=== PATIENT | male | born 1980 | race Caucasian/White ===

== ENCOUNTER → 2017-06-06 | Outpatient (CLI) | payer OTHER, SELFPAY | LOC: M OUTALCOH 11:32 | PROVIDERS: ATTEND Psychiatry & Neurology Psychiatry | DX: Z13.9 Encounter for screening, unspecified (principal); F10.20 Alcohol dependence, uncomplicated ==

== ENCOUNTER 2017-06-30 15:58 | Outpatient (RCR) | payer SELFPAY | END 2017-07-03 | LOC: M OUTALCOH 15:58 | DX: F10.20 Alcohol dependence, uncomplicated (principal); F17.200 Nicotine dependence, unspecified, uncomplicated ==

== ENCOUNTER 2018-07-25 15:50 | Emergency (ER) | payer OTHER, SELFPAY ==
[~2018-07-25] VITALS: Ht 170.2 cm; Wt 72.7 kg
[2018-07-25 16:01] VITALS: BP 117/70
== END 2018-07-25 18:12 | disposition home or self-care (01) ==
LOC: EDBD 15:50 → M ED 15:50
DX: S61.412A Laceration without foreign body of left hand, initial encounter (principal); W26.0XXA Contact with knife, initial encounter; Y92.098 Other place in other non-institutional residence as the place of occurrence of the external cause; F17.210 Nicotine dependence, cigarettes, uncomplicated; Z88.8 Allergy status to other drugs, medicaments and biological substances

== ENCOUNTER → 2018-10-18 | Outpatient (REF) | payer OTHER ==
[2018-10-18 14:13] LABS: BASO # 0.1 10^3/uL (0.0-0.2); BASO % 1.1 % (0.0-1.0); EOS # 0.2 10^3/uL (0.0-0.50); EOS % 2.2 % (0.0-3.0); HEMATOCRIT 51.2 % (42.0-52.0); HEMOGLOBIN 17.3 g/dl (13.5-17.5); LYMPH # 2.1 10^3/uL (1.5-4.5); LYMPH % 23.9 % (24.0-44.0); MEAN CORPUSCULAR HEMOGLOBIN 30.9 pg (27.0-33.0); MEAN CORPUSCULAR HGB CONC 33.8 g/dl (32.0-36.5); MEAN CORPUSCULAR VOLUME 91.6 fl (80.0-96.0); MONO % 10.7 % (0.0-5.0); NEUTROPHILS # 5.5 10^3/uL (1.8-7.7); PLATELET COUNT, AUTOMATED 353 10^3/uL (150-450); RED BLOOD COUNT 5.59 10^6/uL (4.30-6.10)
[2018-10-18 14:47] LABS: HEMOGLOBIN A1c 5.2 %
== END ==
LOC: M SFHCSACK 09:14
PROVIDERS: ATTEND Physician Assistant
DX: Z13.220 Encounter for screening for lipoid disorders (principal); Z13.29 Encounter for screening for other suspected endocrine disorder; M25.50 Pain in unspecified joint; Z83.3 Family history of diabetes mellitus; Z13.21 Encounter for screening for nutritional disorder

== ENCOUNTER → 2018-11-22 | Outpatient (REF) ==
--- NOTE | 2018-11-22 15:12 | REP ---
PARTIAL LUMBAR SPINE: HISTORY: Degenerative disc disease. There is no acute fracture or subluxation. The L3-4 and L4-5 intervertebral discs are decreased in height consistent with disc degeneration. An osteophyte is present on L4. IMPRESSION: Degenerative change, as described above. Electronically Signed by Jorden Hernández MD 11/22/2018 03:32 P
--- NOTE | 2018-11-22 18:42 | REP ---
LEFT SHOULDER, THREE VIEWS: HISTORY: Degenerative joint disease. There is no acute fracture or dislocation. The joint spaces are normal in appearance. IMPRESSION: There is no acute fracture or dislocation. Electronically Signed by Jorden Hernández MD 11/23/2018 08:28 A
== END ==
LOC: M SMT 13:55
PROVIDERS: ATTEND Internal Medicine
DX: M25.78 Osteophyte, vertebrae (principal); M51.36 Other intervertebral disc degeneration, lumbar region

== ENCOUNTER → 2018-11-28 | Outpatient (CLI) | payer OTHER | LOC: M OUTALCOH 08:39 | PROVIDERS: ATTEND Psychiatry & Neurology Psychiatry | DX: Z03.89 Encounter for observation for other suspected diseases and conditions ruled out (principal) ==

== ENCOUNTER 2018-12-29 15:28 | Outpatient (RCR) | payer OTHER | END 2018-12-31 | LOC: M OUTALCOH 15:28 | PROVIDERS: ATTEND Psychiatry & Neurology Psychiatry | DX: Z03.89 Encounter for observation for other suspected diseases and conditions ruled out (principal); F17.200 Nicotine dependence, unspecified, uncomplicated ==

== ENCOUNTER 2019-01-25 10:00 | Outpatient (RCR) | payer OTHER | END 2019-01-31 | LOC: M OUTALCOH 10:00 | PROVIDERS: ATTEND Psychiatry & Neurology Psychiatry | DX: F10.10 Alcohol abuse, uncomplicated (principal); F17.200 Nicotine dependence, unspecified, uncomplicated ==

== ENCOUNTER 2019-03-01 10:00 | Outpatient (RCR) | payer OTHER | END 2019-03-03 | LOC: M OUTALCOH 10:00 | PROVIDERS: ATTEND Psychiatry & Neurology Psychiatry | DX: F10.10 Alcohol abuse, uncomplicated (principal); F17.200 Nicotine dependence, unspecified, uncomplicated ==

== ENCOUNTER 2019-03-28 12:00 | Outpatient (RCR) | payer OTHER | END 2019-04-02 | LOC: M OUTALCOH 12:00 | PROVIDERS: ATTEND Psychiatry & Neurology Psychiatry | DX: F10.10 Alcohol abuse, uncomplicated (principal); F17.200 Nicotine dependence, unspecified, uncomplicated ==

== ENCOUNTER 2019-04-30 13:00 | Outpatient (RCR) | payer OTHER | END 2019-05-03 | LOC: M OUTALCOH 13:00 | PROVIDERS: ATTEND Psychiatry & Neurology Psychiatry | DX: F10.10 Alcohol abuse, uncomplicated (principal); F17.200 Nicotine dependence, unspecified, uncomplicated ==

== ENCOUNTER 2019-05-30 14:00 | Outpatient (RCR) | payer OTHER | END 2019-06-02 | LOC: M OUTALCOH 14:00 | PROVIDERS: ATTEND Psychiatry & Neurology Psychiatry | DX: F10.10 Alcohol abuse, uncomplicated (principal); F17.200 Nicotine dependence, unspecified, uncomplicated ==

== ENCOUNTER → 2019-06-20 | Outpatient (REF) | payer OTHER ==
[2019-06-20 15:59] LABS: CHLAMYDIA DNA AMPLIFICATION NEGATIVE (NEGATIVE); GC DNA AMPLIFICATION NEGATIVE (NEGATIVE)
== END ==
LOC: M SFHCSACK 11:53
PROVIDERS: ATTEND Physician Assistant
DX: R30.0 Dysuria (principal)

== ENCOUNTER → 2019-07-03 | Outpatient (REF) | payer OTHER ==
[2019-07-03 16:57] LABS: APPEARANCE, URINE CLEAR (CLEAR); BACTERIA, URINE AUTO NEGATIVE (NEGATIVE); BILIRUBIN, URINE AUTO NEGATIVE (NEGATIVE); BLOOD, URINE BLOOD 1+ (NEGATIVE); COLOR, URINE YELLOW (YELLOW); GLUCOSE, URINE (UA) AUTO NEGATIVE (NEGATIVE); KETONE, URINE AUTO NEGATIVE (NEGATIVE); LEUKOCYTE ESTERASE, URINE AUTO NEGATIVE (NEGATIVE); MUCUS, URINE SMALL (NEGATIVE); NITRITE, URINE AUTO NEGATIVE (NEGATIVE); PROTEIN, URINE AUTO NEGATIVE (NEGATIVE); RBC, URINE AUTO 1 /HPF (0-3); SPECIFIC GRAVITY URINE AUTO 1.008 (1.002-1.035); SQUAMOUS EPITHELIAL CELL UR AU 0 /HPF (0-6); UROBILINOGEN, URINE AUTO 0.2 mg/dL (0.0-2.0); WBC, URINE AUTO 2 /HPF (0-3)
== END ==
LOC: M SMT 15:33
PROVIDERS: ATTEND Nurse Practitioner Women's Health
DX: R30.0 Dysuria (principal)

== ENCOUNTER → 2019-07-03 | Outpatient (RCR) | payer OTHER | LOC: M OUTALCOH 06-07 10:27 | PROVIDERS: ATTEND Psychiatry & Neurology Psychiatry | DX: F10.10 Alcohol abuse, uncomplicated (principal); F17.200 Nicotine dependence, unspecified, uncomplicated ==

== ENCOUNTER → 2019-07-19 | Outpatient (CLI) | payer OTHER | LOC: M PLALAB 11:40 | PROVIDERS: ATTEND Psychiatry & Neurology Addiction Medicine | DX: F10.10 Alcohol abuse, uncomplicated (principal) ==

== ENCOUNTER 2019-08-01 15:00 | Outpatient (RCR) | payer OTHER | END 2019-08-03 | LOC: M OUTALCOH 15:00 | PROVIDERS: ATTEND Psychiatry & Neurology Addiction Medicine | DX: F10.10 Alcohol abuse, uncomplicated (principal); F17.200 Nicotine dependence, unspecified, uncomplicated ==

== ENCOUNTER → 2019-08-29 | Outpatient (CLI) | payer OTHER | LOC: M PLALAB 15:38 | PROVIDERS: ATTEND Psychiatry & Neurology Addiction Medicine | DX: Z79.899 Other long term (current) drug therapy (principal) ==

== ENCOUNTER 2019-08-31 08:00 | Outpatient (RCR) | payer OTHER | END 2019-09-01 | LOC: M OUTALCOH 08:00 | PROVIDERS: ATTEND Psychiatry & Neurology Addiction Medicine | DX: F10.10 Alcohol abuse, uncomplicated (principal); F17.200 Nicotine dependence, unspecified, uncomplicated ==

== ENCOUNTER 2019-09-28 09:07 | Outpatient (RCR) | payer OTHER | END 2019-10-02 | LOC: M OUTALCOH 09:07 | PROVIDERS: ATTEND Psychiatry & Neurology Addiction Medicine | DX: F10.10 Alcohol abuse, uncomplicated (principal); F17.200 Nicotine dependence, unspecified, uncomplicated ==

== ENCOUNTER → 2020-03-11 | Outpatient (CLI) | payer OTHER | LOC: M OUTALCOH 13:28 | PROVIDERS: ATTEND Psychiatry & Neurology Addiction Medicine | DX: Z03.89 Encounter for observation for other suspected diseases and conditions ruled out (principal) ==

== ENCOUNTER → 2020-04-02 | Outpatient (RCR) | payer OTHER | LOC: M OUTALCOH 03-18 08:55 | PROVIDERS: ATTEND Psychiatry & Neurology Addiction Medicine | DX: F10.10 Alcohol abuse, uncomplicated (principal); F17.200 Nicotine dependence, unspecified, uncomplicated ==

== ENCOUNTER 2020-04-30 13:35 | Outpatient (RCR) | payer OTHER | END 2020-05-03 | LOC: M OUTALCOH 13:35 | PROVIDERS: ATTEND Psychiatry & Neurology Addiction Medicine | DX: F10.10 Alcohol abuse, uncomplicated (principal); F17.200 Nicotine dependence, unspecified, uncomplicated ==

== ENCOUNTER → 2020-06-02 | Outpatient (RCR) | payer OTHER | LOC: M OUTALCOH 05-07 13:48 | PROVIDERS: ATTEND Psychiatry & Neurology Addiction Medicine | DX: F10.20 Alcohol dependence, uncomplicated (principal); F17.200 Nicotine dependence, unspecified, uncomplicated ==

== ENCOUNTER 2020-07-01 16:00 | Outpatient (RCR) | payer OTHER | END 2020-07-03 | LOC: M OUTALCOH 16:00 | PROVIDERS: ATTEND Psychiatry & Neurology Addiction Medicine | DX: F10.20 Alcohol dependence, uncomplicated (principal); F17.200 Nicotine dependence, unspecified, uncomplicated ==

== ENCOUNTER → 2020-07-11 | Outpatient (CLI) | payer OTHER | LOC: M LABSMTC 11:56 | PROVIDERS: ATTEND Family Medicine | DX: Z20.822 Contact with and (suspected) exposure to COVID-19 (principal) ==

== ENCOUNTER 2025-02-15 23:10 | Emergency (ER) | payer OTHER, SELFPAY ==
[~2025-02-15] VITALS: Ht 172.7 cm; Wt 68.0 kg
[2025-02-15 23:59] LABS: PLATELET COUNT, AUTOMATED 368 10^3/uL (150-450)
[2025-02-16 00:17] LABS: AMPHETAMINES LEVEL URINE NEGATIVE (NEGATIVE); BARBITURATES URINE NEGATIVE (NEGATIVE); BENZODIAZEPINES URINE NEGATIVE (NEGATIVE); COCAINE METABOLITE URINE NEGATIVE (NEGATIVE); METHADONE URINE NEGATIVE (NEGATIVE); OPIATES URINE NEGATIVE (NEGATIVE); PHENCYCLIDINE URINE NEGATIVE (NEGATIVE)
[2025-02-16 00:20] LABS: ALT/SGPT 31 U/L (7.0-40); AST/SGOT 47 U/L (<34); CALCIUM LEVEL 9.3 MG/DL (8.5-10.1); CARBON DIOXIDE LEVEL 25 MMOL/L (20-31); CHLORIDE LEVEL 109 MMOL/L (98-107); CREATININE FOR GFR 0.75 MG/DL (0.70-1.30); GLOMERULAR FILTRATION RATE > 90.0 (>60); POTASSIUM SERUM 5.2 MMOL/L (3.5-5.1); SALICYLATE LEVEL < 3.0 MG/DL (<30); SODIUM LEVEL 146 MMOL/L (136-145)
[2025-02-16 00:30] LABS: CANNABINOIDS URINE POSITIVE (NEGATIVE)
[2025-02-16 01:11] LABS: ETHYL ALCOHOL (ETHANOL) 0.390 % (0.000-0.010)
[2025-02-16] MEDS: THIAMINE 100 MG TAB PO SCH (09:32)
[2025-02-16] MEDS: MULTIVITAMINS/MINERALS THERAP 1 TAB PO SCH (09:33)
[2025-02-16] MEDS: FOLIC ACID 1 MG TAB PO SCH (09:33)
[2025-02-16] MEDS ORDERED: HOME MED LIST COMPLETE! XX SCH (09:55)
[2025-02-16 12:59] VITALS: BP 138/78; TEMP 96.5; O2SAT 99
== END 2025-02-16 13:27 | disposition home or self-care (01) ==
LOC: M ED 23:10
DX: F10.120 Alcohol abuse with intoxication, uncomplicated (principal); F12.10 Cannabis abuse, uncomplicated; F32.A Depression, unspecified; F17.210 Nicotine dependence, cigarettes, uncomplicated; F19.10 Other psychoactive substance abuse, uncomplicated; Z88.6 Allergy status to analgesic agent

== ENCOUNTER 2025-03-07 00:30 | Emergency (ER) | payer MEDICAID, OTHER, SELFPAY ==
[2025-03-07 01:12] LABS: PLATELET COUNT, AUTOMATED 452 10^3/uL (150-450)
[2025-03-07 01:38] LABS: AMPHETAMINES LEVEL URINE NEGATIVE (NEGATIVE); BARBITURATES URINE NEGATIVE (NEGATIVE); BENZODIAZEPINES URINE NEGATIVE (NEGATIVE); COCAINE METABOLITE URINE NEGATIVE (NEGATIVE); METHADONE URINE NEGATIVE (NEGATIVE)
[2025-03-07 01:39] LABS: CANNABINOIDS URINE NEGATIVE (NEGATIVE); OPIATES URINE NEGATIVE (NEGATIVE); PHENCYCLIDINE URINE NEGATIVE (NEGATIVE)
[2025-03-07 01:48] LABS: ALT/SGPT 25 U/L (7.0-40); AST/SGOT 37 U/L (<34); CALCIUM LEVEL 10.0 MG/DL (8.5-10.1); CARBON DIOXIDE LEVEL 29 MMOL/L (20-31); CHLORIDE LEVEL 106 MMOL/L (98-107); CREATININE FOR GFR 0.64 MG/DL (0.70-1.30); GLOMERULAR FILTRATION RATE > 90.0 (>60); POTASSIUM SERUM 4.9 MMOL/L (3.5-5.1); SALICYLATE LEVEL < 3.0 MG/DL (<30); SODIUM LEVEL 146 MMOL/L (136-145)
[2025-03-07 03:05] LABS: ETHYL ALCOHOL (ETHANOL) 0.343 % (0.000-0.010)
[2025-03-07] MEDS ORDERED: THIAMINE 100 MG TAB PO SCH (06:00)
[2025-03-07] MEDS ORDERED: HOME MED LIST COMPLETE! XX SCH (08:05)
[2025-03-07] MEDS: FOLIC ACID 1 MG TAB PO SCH (09:40)
[2025-03-07] MEDS: MULTIVITAMINS/MINERALS THERAP 1 TAB PO SCH (09:45)
[2025-03-07] MEDS: THIAMINE 100 MG TAB PO SCH (09:45)
[2025-03-07 15:01] VITALS: BP 154/76; TEMP 98.5; O2SAT 97
== END 2025-03-07 15:03 | disposition home or self-care (01) ==
LOC: M ED 00:30
DX: F10.14 Alcohol abuse with alcohol-induced mood disorder (principal); F17.210 Nicotine dependence, cigarettes, uncomplicated; Z88.6 Allergy status to analgesic agent